=== PATIENT | female | born 1985 | race Caucasian/White ===

== ENCOUNTER → 2017-02-11 | Outpatient (REF) | payer OTHER | LOC: M WHC 16:31 | PROVIDERS: ATTEND Obstetrics & Gynecology | DX: Z34.81 Encounter for supervision of other normal pregnancy, first trimester (principal) ==

== ENCOUNTER → 2017-07-07 | Outpatient (REF) | payer OTHER | LOC: M LAB REF 07-08 13:03 | DX: Z34.83 Encounter for supervision of other normal pregnancy, third trimester (principal); Z3A.35 35 weeks gestation of pregnancy ==

== ENCOUNTER 2017-08-04 15:36 | Inpatient (IN) | payer OTHER ==
[2017-08-04] MEDS: LR IV (16:22)
[2017-08-04 16:29] LABS: HEMATOCRIT 36.1 % (36.0-47.0); HEMOGLOBIN 12.8 g/dl (12.0-16.0); MEAN CORPUSCULAR HEMOGLOBIN 32.1 pg (27.0-33.0); MEAN CORPUSCULAR HGB CONC 35.5 g/dl (32.0-36.5); MEAN CORPUSCULAR VOLUME 90.5 fl (80.0-96.0); PLATELET COUNT, AUTOMATED 224 10^3/uL (150-450); RED BLOOD COUNT 3.99 10^6/uL (4.00-5.40); RED CELL DISTRIBUTION WIDTH 12.7 % (11.5-14.5); WHITE BLOOD COUNT 11.3 10^3/uL (4.0-10.0)
[2017-08-04 16:58] LABS: AMPHETAMINES URINE REFLEX NEGATIVE (NEGATIVE); BARBITURATES URINE REFLEX NEGATIVE (NEGATIVE); BENZODIAZEPINES URINE REFLEX NEGATIVE (NEGATIVE); CANNABINOIDS URINE REFLEX NEGATIVE (NEGATIVE); COCAINE METABOLITE URINE REFLE NEGATIVE (NEGATIVE); METHADONE URINE REFLEX NEGATIVE (NEGATIVE); OPIATES URINE REFLEX NEGATIVE (NEGATIVE); PHENCYCLIDINE URINE REFLEX NEGATIVE (NEGATIVE)
[2017-08-04] MEDS ORDERED: FENTANYL 2MCG/ML ROPIVACAINE 0.2% IN 0.9% NACL 200ML IVBAG As Ordered (17:13)
[2017-08-04] MEDS ORDERED: OXYTOCIN DRIP 30 UNITS in APPROPRIATE DILUENT 1 EA IV ×2 (17:15→20:13)
[2017-08-04] MEDS: LR 1,000 ML IV (17:29)
[2017-08-04] MEDS ORDERED: ONDANSETRON 4MG/2ML VIAL (J2405) As Ordered (19:46)
[2017-08-04] MEDS ORDERED: ONDANSETRON 4MG/2ML VIAL (J2405) IV ×2 (20:00→20:15)
[2017-08-04] MEDS ORDERED: diphenhydrAMINE INJ 50MG/ML VIAL (J1200) IV (20:00)
[2017-08-04] MEDS ORDERED: ePHEDrine INJ 50 MG/ML VIAL IV (20:00)
[2017-08-04] MEDS ORDERED: LACTATED RINGER'S 1000 ML IV (20:00)
[2017-08-04] MEDS ORDERED: FENTANYL/ROPIVACAINE/NACL BAG 200 ML EPIDURAL (20:00)
[2017-08-04] MEDS ORDERED: NALOXONE INJ 0.4 MG/1 ML VIAL (J2310) IV (20:00)
[2017-08-04] MEDS ORDERED: REFRIGERATOR IV KEYS XX (20:00)
[2017-08-04] MEDS ORDERED: EPIDURAL/PCA KEYS XX (20:00)
[2017-08-04] MEDS ORDERED: EPIDURAL COMMENT XX (20:00)
[2017-08-04] MEDS ORDERED: RHOGAM 300 MCG (1500 IU) INJ (J2790) IM (20:15)
[2017-08-04] MEDS ORDERED: METHYLERGONOVINE MALEATE 0.2 MG TAB PO (20:15)
[2017-08-04] MEDS ORDERED: MEASLES,MUMPS,RUBELLA VACCINE INJ (MMR-II) (90707) SC (20:15)
[2017-08-04] MEDS ORDERED: ACETAMINOPHEN 500 MG TAB PO (20:15)
[2017-08-04 20:22] LABS: CORD GAS ABE A -4.6; CORD GAS HCO3 A 24.5 MEQ/L; CORD GAS O2 SAT A 30.5 %; CORD GAS PH A 7.222 UNITS; CORD GAS PO2 A 17.2 mmHg; CORD GAS TCO2 A 26.4 MEQ/L
[2017-08-04 20:39] LABS: CORD GAS ABE V -2.9; CORD GAS O2 SAT V 65.6 %; CORD GAS PCO2 V 44.2 mmHg; CORD GAS PH V 7.335 UNITS; CORD GAS PO2 V 26.3 mmHg; CORD GAS SBC V 21.2 MEQ/L; CORD GAS TCO2 V 24.4 MEQ/L
[2017-08-05] MEDS ORDERED: ANUSOL HC CREAM 30GM TOP (08:30)
[2017-08-05] MEDS: DIBUCAINE 1% OINTMENT 30GM TOP (08:51)
[2017-08-05] MEDS: IBUPROFEN 800 MG TAB PO (08:51)
[2017-08-05] MEDS: PRENATAL VITAMINS CHEWABLE TABLET PO (08:51)
[2017-08-05] MEDS: DOCUSATE SODIUM 100 MG CAP PO (09:14)
[2017-08-06] MEDS: PRENATAL VITAMINS CHEWABLE TABLET PO (07:46)
== END 2017-08-06 10:15 | disposition home or self-care (01) | DRG 560 ==
LOC: M LDI 15:36 → M OBS 22:25
PROVIDERS: Obstetrics & Gynecology
PROC: 10E0XZZ Delivery of Products of Conception, External Approach (ICD-10-PCS; principal; 2017-08-04)
PROC: 10907ZC Drainage of Amniotic Fluid, Therapeutic from Products of Conception, Via Natural or Artificial Opening (ICD-10-PCS; 2017-08-04)
DX: O34.211 Maternal care for low transverse scar from previous cesarean delivery (principal); Z37.0 Single live birth; Z3A.39 39 weeks gestation of pregnancy

== ENCOUNTER → 2019-02-28 | Day surgery (SDC) | payer OTHER ==
[~2019-02-28] VITALS: Ht 170.2 cm; Wt 55.5 kg
[~2019-02-28] MED LIST: LEXA1TAB2 PO; LIDOCAINE 2% INJ 100 MG/5 ML SDV (FOR ANES.) As Ordered ONE; MOTR200T44 PO; NEXP1IMP SC; NS 1,000 ML IV ONE; PEPC40TA12 PO; PRENTAB20 PO; TYLE325T5 PO; propofoL 200 MG/20 ML VIAL As Ordered ONE
--- NOTE | 2019-02-28 13:04 | ROOR ---
Patient Name: Allison Aguero Procedure Date: 02/28/2019 12:37 PM Date of : 1985 Age: 33 Room: [facility] Gender: Female Note Status: Finalized Procedure: Upper GI endoscopy Indications: Suspected esophageal reflux, Globus sensation, Nausea Providers: Yaya Renee MD Referring MD: Keisha WORKMAN MD Requesting Provider: Medicines: Monitored Anesthesia Care Complications: No immediate complications. Procedure: Pre-Anesthesia Assessment: - Prior to the procedure, a History and Physical was performed, and patient medications and allergies were reviewed. The patient is competent. The risks and benefits of the procedure and the sedation options and risks were discussed with the patient. All questions were answered and informed consent was obtained. Patient identification and proposed procedure were verified by the physician, the nurse and the anesthesiologist in the procedure room. Mental Status Examination: alert and oriented. Airway Examination: normal oropharyngeal airway and neck mobility. Respiratory Examination: clear to auscultation. CV Examination: normal. Prophylactic Antibiotics: The patient does not require prophylactic antibiotics. Prior Anticoagulants: The patient has taken no previous anticoagulant or antiplatelet agents. ASA Grade Assessment: II - A patient with mild systemic disease. After reviewing the risks and benefits, the patient was deemed in satisfactory condition to undergo the procedure. The anesthesia plan was to use monitored anesthesia care (MAC). Immediately prior to administration of medications, the patient was re-assessed for adequacy to receive sedatives. The heart rate, respiratory rate, oxygen saturations, blood pressure, adequacy of pulmonary ventilation, and response to care were monitored throughout the procedure. The physical status of the patient was re-assessed after the procedure. The Endoscope was introduced through the mouth, and advanced to the second part of duodenum. The upper GI endoscopy was accomplished without difficulty. The patient tolerated the procedure well. Findings: LA Grade A (one or more mucosal breaks less than 5 mm, not extending between tops of 2 mucosal folds) esophagitis with no bleeding was found in the distal esophagus. Biopsies were taken with a cold forceps for histology. Biopsies were obtained from the proximal and distal esophagus with cold forceps for histology of suspected eosinophilic esophagitis. Verification of patient identification for the specimen was done by the physician and nurse using the patient's name, date and medical record number. Estimated blood loss was minimal. Scattered mild inflammation characterized by erythema and granularity was found in the gastric antrum. Biopsies were taken with a cold forceps for Helicobacter pylori testing. The duodenal bulb and second portion of the duodenum were normal. Biopsies for histology were taken with a cold forceps for evaluation of celiac disease. Impression: - LA Grade A reflux esophagitis. Biopsied. - Gastritis. Biopsied. - Normal duodenal bulb and second portion of the duodenum. Biopsied. Recommendation: - Patient has a contact number available for emergencies. The signs and symptoms of potential delayed complications were discussed with the patient. Return to normal activities tomorrow. Written discharge instructions were provided to the patient. - Resume previous diet. - Continue present medications. - Await pathology results. - Follow an antireflux regimen. - Telephone GI clinic for pathology results in 2 weeks. - Return to primary care physician. Yaya Renee MD Yaya Renee MD 02/28/2019 1:03:36 PM Electronically signed by Yaya Renee MD Number of Addenda: 0 Note Initiated On: 02/28/2019 12:37 PM Estimated Blood Loss: Estimated blood loss was minimal.
[2019-02-28 13:20] VITALS: BP 113/72
== END | disposition home or self-care (01) ==
LOC: M OPP 11:33
PROVIDERS: ATTEND Internal Medicine Gastroenterology
DX: K21.0 Gastro-esophageal reflux disease with esophagitis (principal); K29.70 Gastritis, unspecified, without bleeding; F45.8 Other somatoform disorders; R11.0 Nausea; Z79.899 Other long term (current) drug therapy; F17.210 Nicotine dependence, cigarettes, uncomplicated

== ENCOUNTER → 2019-05-05 | Outpatient (REF) | payer OTHER ==
[~2019-05-05] MED LIST changes: -LIDOCAINE 2% INJ 100 MG/5 ML SDV (FOR ANES.) As Ordered ONE; -NS 1,000 ML IV ONE; -propofoL 200 MG/20 ML VIAL As Ordered ONE
== END ==
LOC: M LAB LCGH 11:42
PROVIDERS: ATTEND Obstetrics & Gynecology
DX: R11.10 Vomiting, unspecified (principal); M54.9 Dorsalgia, unspecified

== ENCOUNTER → 2019-05-05 | Outpatient (REF) | LOC: M LAB LCGH 14:51 | PROVIDERS: ATTEND Obstetrics & Gynecology | DX: N83.11 Corpus luteum cyst of right ovary (principal); N83.01 Follicular cyst of right ovary ==